=== PATIENT | male | born 1960 | race Caucasian/White ===

== ENCOUNTER 2023-09-28 12:01 | Outpatient (RCR) | payer BC, SELFPAY | END 2023-09-28 23:59 | disposition home or self-care (01) | LOC: RPT 12:01 | PROVIDERS: ATTENDING PHYSICIAN Registered Nurse | DX: M54.2 Cervicalgia (principal); Z73.6 Limitation of activities due to disability | CPT/HCPCS: 97110; 97112; 97140; 97162 ==

== ENCOUNTER 2023-10-12 12:16 | Outpatient (RCR) | payer BC, SELFPAY | END 2023-10-14 15:46 | disposition home or self-care (01) | LOC: RPT 12:16 | PROVIDERS: ATTENDING PHYSICIAN Registered Nurse | DX: M54.2 Cervicalgia (principal) | CPT/HCPCS: 97110; 97112; 97140 ==